=== PATIENT | male | born 1965 | race American Indian/Alaskan Native ===

== ENCOUNTER 2021-09-02 08:10 | Outpatient (CLI) | payer BC ==
--- NOTE | 2021-09-02 14:53 | Vascular Lab Report ---
DUPLEX DOPPLER LOWER EXTREMITY ARTERIAL, BILATERAL JUAN CARLOS EVALUATION INDICATION / CLINICAL INFORMATION: I70.213 ATHEROSCLEROSIS OF [place] ARTERIES OF EXTREMITIES. TECHNIQUE: Arterial duplex examination of both lower extremities performed using B-mode, color flow a nd spectral Doppler assessment. FINDINGS: RIGHT: Moderate atherosclerotic disease. Common Femoral Artery: PSV 149 cm/sec. Triphasic waveform. Proximal SFA: PSV 143 cm/sec. Triphasic waveform. Mid SFA: PSV 89 cm/sec. Triphasic waveform. Distal SFA: PSV 92 cm/sec. Triphasic waveform. Popliteal Artery: PSV 126 cm/sec. Triphasic waveform. Posterior Tibial Artery: PSV 83 cm/sec. Triphasic waveform. Dorsalis Pedis Artery: PSV 78 cm/sec. Triphasic waveform. LEFT: Moderate atherosclerotic disease. Common Femoral Artery: PSV 164 cm/sec. Triphasic waveform. Proximal SFA: PSV 152 cm/sec. Triphasic waveform. Mid SFA: PSV 112 cm/sec. Triphasic waveform. Distal SFA: PSV 119 cm/sec. Triphasic waveform. Popliteal Artery: PSV 105 cm/sec. Triphasic waveform. Posterior Tibial Artery: PSV 102 cm/sec. Triphasic waveform. Dorsalis Pedis Artery: PSV 49 cm/sec. Monophasic waveform. ADDITIONAL FINDINGS: None. RIGHT JUAN CARLOS: 0.99 LEFT JUAN CARLOS: 0.92 IMPRESSION: 1. Moderate atherosclerotic disease is present throughout both lower extremities. Velocities do not s trongly indicate a hemodynamically significant segmental stenosis. 2. Abnormal monophasic waveform within the left dorsalis pedis artery suggests more proximal stenosis but is nonspecific. 3. Normal right JUAN CARLOS and borderline reduced left JUAN CARLOS. Ankle-Brachial Index (JUAN CARLOS): - Calcified arteries > 1.4 - Normal = 0.9-1.4 - Mild PAD = 0.7-0.89 - Moderate PAD = 0.51-0.69 - Severe PAD < 0.5 Doppler Waveform: - Triphasic is normal. - Biphasic is abnormal if clear transition from triphasic signal along vascular tree. - Monophasic is abnormal. Scribed by: Farida Lr RDMS, ALESSIAT, JESU Scribed: 09/02/2021 1:16 PM I have reviewed the images, agree with this report, and edited this report as needed. Signer Name: Skyler Burk MD Signed: 09/02/2021 2:48 PM Workstation Name: [id number]
== END 2021-09-02 08:11 | disposition home or self-care (01) ==
LOC: VAS 08:10
PROVIDERS: ATTEND Radiology Diagnostic Radiology
DX: I70.213 Atherosclerosis of native arteries of extremities with intermittent claudication, bilateral legs (principal)
CPT/HCPCS: 93922; 93925